=== PATIENT | female | born 1995 | race Caucasian/White ===

== ENCOUNTER 2018-07-31 20:21 | Emergency (ER) | payer OTHER ==
[~2018-07-31] VITALS: Ht 162.6 cm; Wt 111.1 kg
[2018-07-31] MEDS ORDERED: CYCL10 PO (22:14)
== END 2018-07-31 22:21 | disposition home or self-care (01) ==
LOC: ER 20:21
DX: M54.5 Low back pain (principal); Z88.0 Allergy status to penicillin; F17.200 Nicotine dependence, unspecified, uncomplicated
CPT/HCPCS: 99283